=== PATIENT | female | born 1985 | race Caucasian/White ===

== ENCOUNTER 2016-05-29 15:29 | Outpatient (CLI) | payer OTHER | END 2016-05-29 15:30 | LOC: LAB 15:29 | PROVIDERS: ATTEND Internal Medicine Endocrinology, Diabetes & Metabolism | DX: E03.9 Hypothyroidism, unspecified (principal) | CPT/HCPCS: 36415; 84439; 84443 ==

== ENCOUNTER 2016-11-27 13:45 | Outpatient (CLI) | payer OTHER | END 2016-11-27 13:46 | LOC: LAB 13:45 | PROVIDERS: ATTEND Internal Medicine Endocrinology, Diabetes & Metabolism | DX: E03.9 Hypothyroidism, unspecified (principal) | CPT/HCPCS: 36415; 84439; 84443 ==

== ENCOUNTER 2017-07-25 10:39 | Outpatient (CLI) | payer OTHER ==
[2017-07-25 11:44] LABS: eGFR (African) > 60; eGFR (Non-African) > 60
== END 2017-07-25 10:40 ==
LOC: LAB 10:39
PROVIDERS: ATTEND Family Medicine
DX: Z00.00 Encounter for general adult medical examination without abnormal findings (principal)
CPT/HCPCS: 36415; 80053; 80061

== ENCOUNTER 2017-11-28 14:44 | Outpatient (CLI) | payer OTHER | END 2017-11-28 14:45 | LOC: LAB 14:44 | PROVIDERS: ATTEND Internal Medicine Endocrinology, Diabetes & Metabolism | DX: E03.9 Hypothyroidism, unspecified (principal) | CPT/HCPCS: 36415; 84439; 84443 ==